=== PATIENT | female | born 1995 | race Caucasian/White ===

== ENCOUNTER → 2023-11-10 | Outpatient (CLI) | payer BC | LOC: M WHC 10:00 | PROVIDERS: ATTEND Obstetrics & Gynecology Gynecologic Oncology | DX: Z15.01 Genetic susceptibility to malignant neoplasm of breast (principal); Z15.09 Genetic susceptibility to other malignant neoplasm; N83.01 Follicular cyst of right ovary; N83.02 Follicular cyst of left ovary; R93.89 Abnormal findings on diagnostic imaging of other specified body structures ==

== ENCOUNTER → 2024-01-16 | Outpatient (CLI) | payer BC ==
[~2024-01-16] MED LIST: PROHANCE 279.3MG/ML 15ML VIAL As Ordered ONE; PROHANCE 279.3MG/ML 5ML VIAL As Ordered ONE
== END ==
LOC: M RAD 12:40
PROVIDERS: ATTEND Obstetrics & Gynecology Gynecologic Oncology
DX: N93.9 Abnormal uterine and vaginal bleeding, unspecified (principal); Z15.01 Genetic susceptibility to malignant neoplasm of breast; Q51.28 Other and unspecified doubling of uterus; Z15.09 Genetic susceptibility to other malignant neoplasm; N88.8 Other specified noninflammatory disorders of cervix uteri
CPT/HCPCS: 72197; A9576

== ENCOUNTER → 2024-06-10 | Outpatient (CLI) | payer BC | LOC: M WHC 07:17 | PROVIDERS: ATTEND Obstetrics & Gynecology Gynecologic Oncology | DX: Z15.01 Genetic susceptibility to malignant neoplasm of breast (principal); Z15.09 Genetic susceptibility to other malignant neoplasm; N93.9 Abnormal uterine and vaginal bleeding, unspecified; N88.8 Other specified noninflammatory disorders of cervix uteri; N71.9 Inflammatory disease of uterus, unspecified ==

== ENCOUNTER → 2025-04-04 | Outpatient (CLI) | payer BC | LOC: M RAD 09:25 | PROVIDERS: ATTEND Obstetrics & Gynecology Gynecologic Oncology | DX: Z15.01 Genetic susceptibility to malignant neoplasm of breast (principal); N93.9 Abnormal uterine and vaginal bleeding, unspecified; Q51.28 Other and unspecified doubling of uterus; N88.8 Other specified noninflammatory disorders of cervix uteri ==